=== PATIENT | male | born 1970 | race Caucasian/White ===

== ENCOUNTER 2017-11-23 09:26 | Emergency (ER) | payer OTHER ==
[~2017-11-23] VITALS: Ht 175.3 cm; Wt 99.5 kg
[~2017-11-23 09:26] MED LIST: [UNRECOGNIZED DRUG - OTHER] PO
[2017-11-23 09:30] VITALS: BP 187/134
--- NOTE | 2017-11-23 09:34 | NUR ---
PATIENT AMBULATED TO ER BED 3
[2017-11-23] MEDS ORDERED: hydrALAZINE 20 MG/ML VIAL IM ONE (09:40)
--- NOTE | 2017-11-23 09:40 | NUR ---
PATIENT BEING EVALUATED BY DR. MEREDITH
--- NOTE | 2017-11-23 10:54 | NUR ---
PATIENT COMFORTABLY RESTING IN BED, SIDE RAILS UP, HOB ELEVATED TO 45 DEGREES AT OF 1054AM. AT 1020 PATIENT C/O DIZZINESS, NAUSEA, AND FEELING THAT HE WAS GOING TO PASS OUT. ASSISTED PATIENT FROM CHAIR TO BED, PLACED HOB UP, AND PUT UP X2 SIDE RAILS. COOL CLOTH APPLIED TO HEAD. PATIENT STATES FEELING RELIEFE AND NO LONGER FEELING DIZZY. MD AWARE.
[2017-11-23 11:11] VITALS: BP 148/87
--- NOTE | 2017-11-23 11:13 | NUR ---
Patient discharged with v/s stable. Written and verbal after care instructions given and explained. Patient alert, oriented and verbalized understanding of instructions. Ambulatory with steady gait. All questions addressed prior to discharge. ID band removed. Patient advised to follow up with PMD. Rx of AMOXICILLIN, ZYRTEC, AND FLONASE given. Patient educated on indication of medication including possible reaction and side effects. Opportunity to ask questions provided and answered.
[2017-11-24] MEDS ORDERED: LABETALOL 100 MG TAB PO SCH (09:00)
== END 2017-11-23 11:13 | disposition home or self-care (01) ==
LOC: MED 09:26
DX: H00.011 Hordeolum externum right upper eyelid (principal); R09.81 Nasal congestion; J30.2 Other seasonal allergic rhinitis; H66.91 Otitis media, unspecified, right ear; I10 Essential (primary) hypertension; Z79.899 Other long term (current) drug therapy
CPT/HCPCS: 69209; 96372; 99283; J0360; Q0163

== ENCOUNTER 2018-11-26 17:42 | Emergency (ER) | payer OTHER ==
[~2018-11-26] VITALS: Ht 175.3 cm; Wt 104.4 kg
[2018-11-26 17:55] VITALS: BP 180/103
[2018-11-26] MEDS ORDERED: PROMETH/CODEINE 6.25-10MG/5ML 5 ML UDC PO ONE (21:00)
[2018-11-26 22:29] VITALS: BP 147/68
== END 2018-11-26 22:20 | disposition home or self-care (01) ==
LOC: MED 17:42
DX: J98.01 Acute bronchospasm (principal); H10.33 Unspecified acute conjunctivitis, bilateral; I10 Essential (primary) hypertension; Z79.899 Other long term (current) drug therapy
CPT/HCPCS: 71046; 99283

== ENCOUNTER 2021-11-30 10:47 | Emergency (ER) | payer OTHER ==
[~2021-11-30] VITALS: Ht 175.3 cm; Wt 104.3 kg
[2021-11-30 11:09] VITALS: BP 165/119
[2021-11-30] MEDS ORDERED: PRED20TA5 PO (13:23)
[2021-11-30] MEDS ORDERED: IBUP-2213 PO (13:23)
[2021-11-30 13:46] VITALS: BP 148/85
--- NOTE | 2021-11-30 13:46 | NUR ---
Patient discharged with v/s stable. Written and verbal after care instructions given COUGH and explained. Patient alert, oriented and verbalized understanding of instructions. Ambulatory with by parent. All questions addressed prior to discharge. ID band removed. Patient advised to follow up with PMD. Rx of IBUPROFEN AND PREDNISONE given. Patient educated on indication of medication including possible reaction and side effects. Opportunity to ask questions provided and answered.
== END 2021-11-30 13:46 | disposition home or self-care (01) ==
LOC: MED 10:47
DX: R05.9 Cough, unspecified (principal); R06.02 Shortness of breath; I10 Essential (primary) hypertension; Z79.899 Other long term (current) drug therapy; Z98.890 Other specified postprocedural states
CPT/HCPCS: 71045; 99283; Q0092